=== PATIENT | male | born 1975 | race Caucasian/White ===

== ENCOUNTER 2018-01-05 20:38 | Inpatient (IN) | payer MEDICAID ==
[2018-01-05] MEDS: morphine 4 MG/ML VIAL IV (22:26)
[2018-01-05] MEDS: ONDANSETRON 4 MG INJ IV (22:26)
[2018-01-05] MEDS: SOD CHLORIDE 0.9% 1,000 ML IV (22:27)
[2018-01-05 22:35] LABS: ADD MAN DIFF? NO
[2018-01-05 22:37] LABS: BASOPHIL # 0.1 10^3/ul (0.0-0.1); BASOPHILS % 0.3 % (0.0-2.0); EOSINOPHILS % 0.1 % (0.0-7.0); HEMATOCRIT 43.5 % (42.0-52.0); HEMOGLOBIN 14.8 g/dl (14.0-18.0); LYMPHOCYTES # 0.9 10^3/ul (0.8-2.9); LYMPHOCYTES % 4.7 % (15.0-51.0); MEAN CORPUSCULAR HEMOGLOBIN 29.4 pg (29.0-33.0); MEAN CORPUSCULAR VOLUME 86.5 fl (82.0-101.0); MEAN PLATELET VOLUME 9.9 fl (7.4-10.4); MONOCYTE # 0.9 10^3/ul (0.3-0.9); MONOCYTES % 4.5 % (0.0-11.0); NEUTROPHIL # 17.9 10^3/ul (1.6-7.5); NEUTROPHILS % 89.8 % (39.0-77.0); PLATELET COUNT 284 10^3/UL (140-415); RED BLOOD COUNT 5.03 10^6/ul (4.70-6.10); RED CELL DISTRIBUTION WIDTH 12.4 % (11.5-14.5)
[2018-01-05 22:37] LABS: WHITE BLOOD COUNT 19.9 10^3/ul (4.8-10.8)
[2018-01-05 22:56] LABS: ALANINE AMINOTRANSFERASE 23 IU/L (13-69); ALBUMIN 4.2 g/dl (3.3-4.9); ALBUMIN/GLOBULIN RATIO 1.05; ALKALINE PHOSPHATASE 108 IU/L (42-121); ANION GAP 16 (5-13); ASPARTATE AMINO TRANSFERASE 30 IU/L (15-46); BILIRUBIN,INDIRECT 0.9 mg/dl (0-1.1); BILIRUBIN,TOTAL 0.9 mg/dl (0.2-1.3); BLOOD UREA NITROGEN 13 mg/dl (7-20); CALCIUM 9.9 mg/dl (8.4-10.2); CARBON DIOXIDE 20 mmol/L (21-31); CHLORIDE 106 mmol/L (97-110); CREATININE 1.24 mg/dl (0.61-1.24); Estimated GFR > 60 mL/min (>60); GLUCOSE 220 mg/dl (70-220); LIPASE 49 U/L (23-300); POTASSIUM 3.8 mmol/L (3.5-5.1); SODIUM 142 mmol/L (135-144); TOTAL PROTEIN 8.2 g/dl (6.1-8.1)
[2018-01-06] MEDS: HYDROmorphONE 0.5 MG/0.5 ML SYG IV (00:40)
[2018-01-06] MEDS: PIPER-TAZO 3.375 GM IV (PMX) 100 ML IVPB ×4 (02:44→20:48)
[2018-01-06 02:55] LABS: ADD UMIC NO; UR ASCORBIC ACID NEGATIVE (NEGATIVE); UR BILIRUBIN (Dip) NEGATIVE (NEGATIVE); UR BLOOD (Dip) NEGATIVE (NEGATIVE); UR CLARITY SLIGHTLY CLOUDY (CLEAR); UR COLOR YELLOW (YELLOW); UR GLUCOSE (Dip) 3+ mg/dL (NEGATIVE); UR KETONES (Dip) 2+ mg/dL (NEGATIVE); UR LEUKOCYTE ESTERASE (Dip) NEGATIVE Leu/ul (NEGATIVE); UR MUCUS FEW /HPF (NONE SEEN); UR NITRITE (Dip) NEGATIVE (NEGATIVE); UR RBC 1 /HPF (0-5); UR SPECIFIC GRAVITY (Dip) 1.024 (1.003-1.030); UR TOTAL PROTEIN (Dip) NEGATIVE (NEGATIVE); UR UROBILINOGEN (Dip) NEGATIVE (NEGATIVE); UR WBC 1 /HPF (0-5)
[2018-01-06] MEDS ORDERED: ONDANSETRON 4 MG INJ IV ×4 (03:30→16:00)
[2018-01-06] MEDS ORDERED: ACETAMINOPHEN 325 MG TAB PO ×2 (03:30→16:00)
[2018-01-06] MEDS ORDERED: NACL 0.9% 3 ML SYG IV (03:30)
[2018-01-06] MEDS: DEXTROSE 5%-0.45% NACL 1,000 ML IV ×4 (04:44→20:51)
[2018-01-06] MEDS ORDERED: LIDOCAINE 2% (SDV) 5 ML INJ (07:00)
[2018-01-06] MEDS: morphine 2 MG INJ IV ×3 (08:09→23:29)
[2018-01-06] MEDS ORDERED: PROPOFOL 20 ML (14:43)
[2018-01-06] MEDS ORDERED: ROCURONIUM 50 MG INJ (14:45)
[2018-01-06] MEDS: BUPIVACAINE 0.25%/EPI (MDV) 50 ML VIAL INJ (15:24)
[2018-01-06] MEDS: LIDOCAINE 2% (MDV) 20 ML INJ (15:24)
[2018-01-06] MEDS ORDERED: DEXAMETHASONE 4 MG/ML 1 ML INJ (15:46)
[2018-01-06] MEDS ORDERED: ACETAMINOPHEN 1000MG/100ML IV 100 ML (15:46)
[2018-01-06] MEDS ORDERED: ONDANSETRON 4 MG INJ (15:46)
[2018-01-06] MEDS ORDERED: SUGAMMADEX SODIUM 200 MG/2 ML VIAL IV (15:47)
[2018-01-06] MEDS ORDERED: FENTAnyl 50 MCG/ML VIAL IV ×3 (16:00)
[2018-01-06] MEDS ORDERED: EPHEDrine SULFATE 50 MG/5 ML SYG IV (16:00)
[2018-01-06] MEDS ORDERED: MEPERIDINE 25 MG INJ IV (16:00)
[2018-01-06] MEDS ORDERED: HYDROmorphONE 1 MG/5 ML IV SYRINGE IV ×3 (16:00)
[2018-01-06] MEDS ORDERED: LABETALOL HCL 20MG INJ IV (16:00)
[2018-01-06] MEDS ORDERED: KETOROLAC 30 MG INJ IV (16:00)
[2018-01-06] MEDS ORDERED: HYDROCODONE/APAP (5/325) TAB PO (16:00)
[2018-01-06] MEDS ORDERED: METOCLOPRAMIDE 10 MG INJ IV (16:00)
[2018-01-06] MEDS ORDERED: OXYCODONE/ACETAMINOPHEN (5/325) TAB PO ×2 (16:00)
[2018-01-06] MEDS ORDERED: hydrALAzine 20 MG INJ IV (16:00)
[2018-01-06] MEDS ORDERED: ALBUTEROL 0.083% (NEB) 2.5 MG/3 ML AMP HHN (16:00)
[2018-01-06] MEDS ORDERED: DIPHENHYDRAMINE 50 MG INJ IV (16:00)
[2018-01-06] MEDS: ACETAMINOPHEN 500 MG TAB PO (17:22)
[2018-01-07] MEDS: PIPER-TAZO 3.375 GM IV (PMX) 100 ML IVPB ×4 (04:28→20:32)
[2018-01-07] MEDS: morphine 2 MG INJ IV ×4 (04:28→20:32)
[2018-01-07] MEDS: PANTOPRAZOLE (EC) 40 MG TAB PO (05:29)
[2018-01-07] MEDS: DEXTROSE 5%-0.45% NACL 1,000 ML IV (05:30)
[2018-01-07 06:02] LABS: ADD MAN DIFF? NO
[2018-01-07 06:06] LABS: ABNORMAL IP MESSAGE 1; BASOPHILS % 0.1 % (0.0-2.0); HEMATOCRIT 37.9 % (42.0-52.0); HEMOGLOBIN 12.4 g/dl (14.0-18.0); LYMPHOCYTES # 0.3 10^3/ul (0.8-2.9); LYMPHOCYTES % 2.4 % (15.0-51.0); MEAN CORPUSCULAR HEMOGLOBIN 29.7 pg (29.0-33.0); MEAN CORPUSCULAR HGB CONC 32.7 g/dl (32.0-37.0); MEAN CORPUSCULAR VOLUME 90.7 fl (82.0-101.0); MONOCYTE # 0.5 10^3/ul (0.3-0.9); MONOCYTES % 3.9 % (0.0-11.0); NEUTROPHILS % 93.2 % (39.0-77.0); POSITIVE DIFF @See below; RED BLOOD COUNT 4.18 10^6/ul (4.70-6.10); RED CELL DISTRIBUTION WIDTH 13.2 % (11.5-14.5)
[2018-01-07 06:06] LABS: WHITE BLOOD COUNT 13.9 10^3/ul (4.8-10.8)
[2018-01-07 06:14] LABS: PLATELET COUNT 189 10^3/UL (140-415)
[2018-01-07 06:37] LABS: ALANINE AMINOTRANSFERASE 23 IU/L (13-69); ALBUMIN 3.1 g/dl (3.3-4.9); ALBUMIN/GLOBULIN RATIO 0.88; ALKALINE PHOSPHATASE 56 IU/L (42-121); ANION GAP 8 (5-13); ASPARTATE AMINO TRANSFERASE 32 IU/L (15-46); BILIRUBIN,INDIRECT 0.5 mg/dl (0-1.1); BILIRUBIN,TOTAL 0.5 mg/dl (0.2-1.3); BLOOD UREA NITROGEN 10 mg/dl (7-20); CALCIUM 8.3 mg/dl (8.4-10.2); CARBON DIOXIDE 27 mmol/L (21-31); CHLORIDE 105 mmol/L (97-110); CREATININE 1.09 mg/dl (0.61-1.24); Estimated GFR > 60 mL/min (>60); GLUCOSE 168 mg/dl (70-220); MAGNESIUM 2.2 mg/dl (1.7-2.5); PHOSPHORUS 3.8 mg/dl (2.5-4.9); POTASSIUM 4.2 mmol/L (3.5-5.1); SODIUM 140 mmol/L (135-144); TOTAL PROTEIN 6.6 g/dl (6.1-8.1)
[2018-01-07] MEDS: ACCU-CHEK XX ×3 (10:00→20:00)
[2018-01-08] MEDS: morphine 2 MG INJ IV ×3 (01:49→19:51)
[2018-01-08] MEDS: PIPER-TAZO 3.375 GM IV (PMX) 100 ML IVPB ×4 (02:28→21:07)
[2018-01-08] MEDS: PANTOPRAZOLE (EC) 40 MG TAB PO (06:00)
[2018-01-08 07:06] LABS: ADD MAN DIFF? NO
[2018-01-08 07:15] LABS: BASOPHILS % 0.5 % (0.0-2.0); EOSINOPHILS # 0.1 10^3/ul (0.0-0.5); HEMATOCRIT 37.8 % (42.0-52.0); HEMOGLOBIN 12.2 g/dl (14.0-18.0); LYMPHOCYTES # 1.3 10^3/ul (0.8-2.9); MEAN CORPUSCULAR HEMOGLOBIN 29.3 pg (29.0-33.0); MEAN CORPUSCULAR HGB CONC 32.3 g/dl (32.0-37.0); MEAN CORPUSCULAR VOLUME 90.6 fl (82.0-101.0); MEAN PLATELET VOLUME 10.9 fl (7.4-10.4); MONOCYTE # 0.7 10^3/ul (0.3-0.9); MONOCYTES % 7.8 % (0.0-11.0); NEUTROPHIL # 6.5 10^3/ul (1.6-7.5); NEUTROPHILS % 75.5 % (39.0-77.0); PLATELET COUNT 193 10^3/UL (140-415); RED BLOOD COUNT 4.17 10^6/ul (4.70-6.10); RED CELL DISTRIBUTION WIDTH 13.4 % (11.5-14.5)
[2018-01-08 07:15] LABS: WHITE BLOOD COUNT 8.6 10^3/ul (4.8-10.8)
[2018-01-08] MEDS: ACETAMINOPHEN 500 MG TAB PO (08:01)
[2018-01-08] MEDS ORDERED: morphine LIQ (10 MG/5 ML) CUP PO (21:30)
[2018-01-09] MEDS: PIPER-TAZO 3.375 GM IV (PMX) 100 ML IVPB ×3 (03:15→15:38)
[2018-01-09] MEDS: PANTOPRAZOLE (EC) 40 MG TAB PO (06:20)
[2018-01-09 06:32] LABS: ADD MAN DIFF? NO
[2018-01-09 06:38] LABS: BASOPHILS % 0.3 % (0.0-2.0); EOSINOPHILS # 0.1 10^3/ul (0.0-0.5); HEMATOCRIT 37.7 % (42.0-52.0); HEMOGLOBIN 12.6 g/dl (14.0-18.0); LYMPHOCYTES # 1.4 10^3/ul (0.8-2.9); LYMPHOCYTES % 13.5 % (15.0-51.0); MEAN CORPUSCULAR HEMOGLOBIN 29.5 pg (29.0-33.0); MEAN CORPUSCULAR HGB CONC 33.4 g/dl (32.0-37.0); MEAN CORPUSCULAR VOLUME 88.3 fl (82.0-101.0); MEAN PLATELET VOLUME 10.3 fl (7.4-10.4); MONOCYTE # 0.8 10^3/ul (0.3-0.9); MONOCYTES % 7.9 % (0.0-11.0); NEUTROPHIL # 8.1 10^3/ul (1.6-7.5); PLATELET COUNT 211 10^3/UL (140-415); RED BLOOD COUNT 4.27 10^6/ul (4.70-6.10)
[2018-01-09 06:38] LABS: WHITE BLOOD COUNT 10.6 10^3/ul (4.8-10.8)
[2018-01-09 07:01] LABS: HEMOGLOBIN A1C 6.2 % (0-5.9); PHOSPHORUS 3.1 mg/dl (2.5-4.9)
[2018-01-09 07:01] LABS: MAGNESIUM 2.1 mg/dl (1.7-2.5)
[2018-01-09 07:08] LABS: ALANINE AMINOTRANSFERASE 61 IU/L (13-69); ALKALINE PHOSPHATASE 87 IU/L (42-121); ANION GAP 11 (5-13); ASPARTATE AMINO TRANSFERASE 56 IU/L (15-46); BLOOD UREA NITROGEN 10 mg/dl (7-20); CALCIUM 8.5 mg/dl (8.4-10.2); CARBON DIOXIDE 26 mmol/L (21-31); CHLORIDE 102 mmol/L (97-110); CREATININE 1.06 mg/dl (0.61-1.24); Estimated GFR > 60 mL/min (>60); GLUCOSE 138 mg/dl (70-220); POTASSIUM 3.8 mmol/L (3.5-5.1); SODIUM 139 mmol/L (135-144); TOTAL PROTEIN 6.3 g/dl (6.1-8.1)
[2018-01-09 08:02] LABS: BILIRUBIN,INDIRECT 0.5 mg/dl (0-1.1); BILIRUBIN,TOTAL 0.5 mg/dl (0.2-1.3)
== END 2018-01-09 17:05 | disposition home or self-care (01) | DRG 340 ==
LOC: FTE 20:38 → 2NE 01-06 03:03
PROC: 0DTJ4ZZ Resection of Appendix, Percutaneous Endoscopic Approach (ICD-10-PCS; principal; 2018-01-06 13:00)
DX: K35.32 Acute appendicitis with perforation, localized peritonitis, and gangrene, without abscess (principal); D72.829 Elevated white blood cell count, unspecified; I10 Essential (primary) hypertension; R73.03 Prediabetes; E66.3 Overweight; Z68.26 Body mass index [BMI] 26.0-26.9, adult; Z87.891 Personal history of nicotine dependence
CPT/HCPCS: 36415; 74176; 80053; 81001; 81003; 82962; 83036; 83690; 83735; 84100; 85025; 87040; 88304; 96365; 96375; 99285-25